=== PATIENT | female | born 2000 | race Caucasian/White ===

== ENCOUNTER 2021-02-02 06:51 | Inpatient (IN) ==
[2021-02-02 06:58] VITALS: BMI 42.9
[2021-02-02 07:49] LABS: AMNISURE ROM TEST THERE IS A RUPTURE (NO RUPTURE)
[2021-02-02] MEDS ORDERED: PITOCIN ONE (07:59)
[2021-02-02] MEDS ORDERED: D5 1/2 NS 1000 ML 1,000 ML IV ONE (07:59)
[2021-02-02] MEDS ORDERED: BETADINE SOLN ONE (07:59)
[2021-02-02] MEDS ORDERED: D5LR 1L W PITOCIN 10 UNITS/L 10 UNITS/1,000 ML BAG IV ONE (08:00)
[2021-02-02] MEDS ORDERED: D5 1/2 NS 1L W PITOCIN 20 UNITS/L 20 UNITS/1,000 ML BAG IV ONE (08:00)
[2021-02-02] MEDS ORDERED: STADOL INJ ONE (08:00)
[2021-02-02] MEDS ORDERED: AMPICILLIN VIAL 2 GRAM ONE (08:01)
[2021-02-02] MEDS ORDERED: NS 100 ML IV 100 ML IV ONE (08:01)
[2021-02-02] MEDS ORDERED: REGLAN INJ 10 MG VIAL IVP PRN (08:29)
[2021-02-02] MEDS ORDERED: PITOCIN IVP ONE (08:29)
[2021-02-02] MEDS ORDERED: PHENERGAN INJ 25 MG IM PRN ×2 (08:29→10:49)
[2021-02-02] MEDS ORDERED: D5LR 1L W PITOCIN 10 UNITS/L 10 UNITS/1,000 ML BAG IV PRN (08:29)
[2021-02-02] MEDS ORDERED: STADOL INJ IVP PRN (08:31)
[2021-02-02] MEDS ORDERED: XYLOCAINE 1 % (PLAIN) ONE (08:57)
[2021-02-02 08:58] LABS: BASOPHILS % (AUTO) 0.3 % (0.2-1.0); EOSINOPHILS # (AUTO) 0.1 x10^3/uL (0.0-0.2); EOSINOPHILS % (AUTO) 0.5 % (0.9-2.9); HEMATOCRIT 34.7 % (36.0-47.0); HEMOGLOBIN 11.3 g/dL (12.0-16.0); LYMPHOCYTES # (AUTO) 1.8 X10^3/uL (1.3-2.9); LYMPHOCYTES % (AUTO) 13.1 % (21.0-51.0); MEAN CORPUSCULAR HEMOGLOBIN 28.7 pg (27.0-34.0); MEAN CORPUSCULAR HGB CONC 32.6 g/dL (33.0-35.0); MEAN CORPUSCULAR VOLUME 88.2 fL (80.0-100.0); MEAN PLATELET VOLUME 9.4 fL (7.4-11.0); MONOCYTES # (AUTO) 0.5 x10^3/uL (0.3-0.8); MONOCYTES % (AUTO) 3.4 % (0.0-13.0); NEUTROPHILS # (AUTO) 11.3 x10^3/uL (2.2-4.8); NEUTROPHILS % (AUTO) 82.7 % (42.0-75.0); PLATELET COUNT 270 X10^3/uL (150.0-450.0); RED BLOOD COUNT 3.94 X10^6/uL (3.5-5.4); RED CELL DISTRIBUTION WIDTH 13.8 % (11.6-16.5); WHITE BLOOD COUNT 13.7 X10^3/uL (3.6-10.0)
[2021-02-02] MEDS ORDERED: AMPICILLIN VIAL 2 GRAM 2 G in NS 100 ML IV + SPIKE MINIBAG* 100 ML IV SCH (09:00)
[2021-02-02] MEDS ORDERED: D5 1/2 NS 1000 ML 1,000 ML IV SCH (09:00)
[2021-02-02 09:01] LABS: BLOOD UREA NITROGEN 7 mg/dL (7-18); CALCIUM 8.4 mg/dL (8.5-10.1); CHLORIDE 105 mmol/L (98-107); COR NA(FOR HYPERGLY) 141 mmol/L (136-145); CREATININE 0.74 mg/dL (0.55-1.02); SODIUM 140 mmol/L (136-145); eGFR NON BLACK RACES > 60 (>60)
[2021-02-02 10:27] LABS: BILIRUBIN,URINE NEGATIVE (NEGATIVE); BLOOD/HEMOGLOBIN,URINE 4+ (NEGATIVE); GLUCOSE, URINE NEGATIVE (NEGATIVE); KETONES,URINE NEGATIVE (NEGATIVE); LEUKOCYTE ESTERASE ,URINE NEGATIVE (NEGATIVE); NITRITES,URINE NEGATIVE (NEGATIVE); PROTEIN,URINE NEGATIVE (NEGATIVE); UROBILINOGEN,URINE NORMAL (NORMAL)
[2021-02-02 10:30] LABS: APPEARANCE,URINE CLEAR (CLEAR); COLOR,URINE YELLOW (YELLOW)
[2021-02-02 10:35] LABS: BACTERIA,URINE 1+ /HPF (NEGATIVE); RBC,URINE 20-30 /HPF (0-3); SQUAMOUS EPITHELIAL CELL,UR FEW /HPF (NEGATIVE); TRANSITIONAL EPI CELLS,URINE FEW /HPF (NEGATIVE)
[2021-02-02 10:36] LABS: HYALINE CASTS, URINE FEW /LPF (NEGATIVE); MUCUS,URINE NUMEROUS /HPF (NEGATIVE)
--- NOTE | 2021-02-02 10:59 | DR.OB ---
OB Quick Note - Assessment/Plan Assessment/Plan: Delivery Note [employer] MEMBER 02/02/21 at 10:34 am Patient complete and pushing. Head delivered over intact perineum. Nose and mouth bulb suctioned. No nuchal cord. Body delivered over intact perineum. Cord clamped x 2 and cut. Infant handed to attendant. Cord sent for gases. Placenta delivered spontaneously / intact /3 vessel cord. No CVX / vaginal / perineal tears. Viable male , VTX/OA, wt=7'2" and 8/9, stable to NBN. Mother stable to RR. [id number].
[2021-02-02] MEDS: D5 1/2 NS 1000 ML 1,000 ML with PITOCIN 20 UNITS IV SCH ×4 (11:45→21:53)
[2021-02-02] MEDS ORDERED: AMBIEN PO PRN (12:15)
[2021-02-02] MEDS ORDERED: MILK OF MAGNESIA PO PRN (12:15)
[2021-02-02] MEDS ORDERED: VENTOLIN or PROAIR HFA IN PRN (12:15)
[2021-02-02] MEDS ORDERED: ADACEL or BOOSTRIX TDaP VACCINE IM ONE (12:15)
[2021-02-02] MEDS: DERMOPLAST PAIN RELIEF SPRAY TOP PRN ×2 (14:17→14:18)
[2021-02-02] MEDS: MOTRIN TAB 800 MG PO PRN ×2 (14:17→21:54)
[2021-02-02] MEDS ORDERED: SINGULAIR TAB 10 MG PO SCH (21:00)
[2021-02-03] MEDS: D5 1/2 NS 1000 ML 1,000 ML with PITOCIN 20 UNITS IV SCH ×4 (04:49→11:09)
[2021-02-03 05:15] LABS: HEMATOCRIT 29.1 % (36.0-47.0); HEMOGLOBIN 9.5 g/dL (12.0-16.0)
[2021-02-03] MEDS ORDERED: DEPO-PROVERA CONTRACEPTIVE INJ IM ONE (07:38)
[2021-02-03] MEDS ORDERED: PRENATAL PLUS PO SCH (09:00)
[2021-02-03] MEDS ORDERED: PROTONIX TAB 40 MG PO SCH (09:00)
[2021-02-03] MEDS ORDERED: REFLEX: PROVENTIL NEB & PulmiCORT NEB~ NEB SCH (09:00)
[2021-02-03] MEDS ORDERED: PROVENTIL NEB TX 0.083% 2.5MG/ 3ML ONE (09:05)
[2021-02-03] MEDS ORDERED: PULMICORT NEB TX 0.5 MG NEB ONE (09:05)
[2021-02-03 12:36] VITALS: BP 118/73
== END 2021-02-03 13:55 | disposition home or self-care (01) | DRG 807 ==
LOC: ER 06:51 → LD 07:55 → MED/SURG 12:45
PROVIDERS: ADMIT Specialist; ATTEND Specialist
DX: Z3A.37 37 weeks gestation of pregnancy; O99.824 Streptococcus B carrier state complicating childbirth; J45.998 Other asthma; O99.613 Diseases of the digestive system complicating pregnancy, third trimester; N87.0 Mild cervical dysplasia; O99.891 Other specified diseases and conditions complicating pregnancy; B95.1 Streptococcus, group B, as the cause of diseases classified elsewhere; Z20.822 Contact with and (suspected) exposure to COVID-19; O24.420 Gestational diabetes mellitus in childbirth, diet controlled; Z37.0 Single live birth